=== PATIENT | male | born 1970 | race Caucasian/White ===

== ENCOUNTER 2016-10-11 20:55 | Observation (INO) | payer OTHER ==
[~2016-10-11 20:55] MED LIST: LISINOPRIL10 M1 PO; METOPROLOL SUCC25 M1 PO; MOTRIN IB200 M1 PO; ZITHROMAX250 M1 PO
[2016-10-11] MEDS ORDERED: VIBRAMYCIN100 M1 PO (21:40)
[2016-10-11] MEDS ORDERED: MUCINEX DM ER1 EAC1 PO (21:40)
[2016-10-11 22:15] LABS: BASO % 0.4 % (0-2); EOS % 1.4 % (0-7); EOSINOPHIL ABSOLUTE COUNT 0.1 tho/cmm (0.0-0.7); HCT-HEMATOCRIT 41.7 % (36.0-53.5); HGB-HEMOGLOBIN 13.8 gm/dl (13.5-17.0); IMMATURE GRANULOCYTES ABSOLUTE 0.02 tho/cmm (0-0.03); IMMATURE GRANULOCYTES PERCENT 0.2 % (0-0.3); LYMPH % 18.7 % (20-45); LYMPH ABSOLUTE COUNT 1.9 tho/cmm (0.8-4.5); MCH (MEAN CORPUSCULAR HGB) 27.1 pg (28.0-32.0); MCHC MEAN CORPUSCULAR HGB CONC 33.1 % (32.0-36.0); MCV (MEAN CELL VOLUME) 81.9 fl (82.0-96.0); MEAN PLATELET VOLUME 10.3 cmc (9.4-12.4); MONO % 6.4 % (0-12); MONOCYTE ABSOLUTE COUNT 0.6 tho/cmm (0.0-1.2); NEUTROPHIL ABSOLUTE COUNT 7.2 tho/cmm (1.6-8.0); NEUTROPHIL-AUTOMATED 7.2 tho/cmm (1.6-8.0); NEUTROPHILS % 72.9 % (40-80); PLATELET COUNT 334 tho/cmm (150-450); RED BLOOD COUNT 5.09 mil/cmm (4.40-5.70); RED CELL DISTRIBUTION WIDTH 14.7 % (12.4-16.4); WHITE BLOOD COUNT 9.9 tho/cmm (4.0-10.0)
[2016-10-11 22:29] LABS: BLOOD UREA NITROGEN 22 mg/dl (6-24); CARBON DIOXIDE-VENOUS 28 mmol/L (22-32); CHLORIDE 104 mmol/l (96-110); CREATININE 0.91 mg/dl (0.60-1.30); GLUCOSE 86 mg/dL (70-110); SODIUM 140 mmol/L (135-145); eGFR VALUE FOR BLACK >90 mL/Min
[2016-10-11 22:33] LABS: ANION GAP 12 mmol/L (0-20)
[2016-10-11 22:35] LABS: POTASSIUM 3.9 mmol/L (3.7-5.1)
[2016-10-12 04:41] LABS: ANION GAP 10 mmol/L (0-20); BLOOD UREA NITROGEN 21 mg/dl (6-24); CALCIUM 9.1 mg/dl (8.5-10.5); CARBON DIOXIDE-VENOUS 30 mmol/L (22-32); CHLORIDE 103 mmol/l (96-110); CREATININE 1.09 mg/dl (0.60-1.30); GLUCOSE 93 mg/dL (70-110); POTASSIUM 3.4 mmol/L (3.7-5.1); SODIUM 140 mmol/L (135-145); eGFR VALUE FOR BLACK >90 mL/Min
[2016-10-13 05:13] LABS: ANION GAP 11 mmol/L (0-20); BLOOD UREA NITROGEN 21 mg/dl (6-24); CALCIUM 8.8 mg/dl (8.5-10.5); CARBON DIOXIDE-VENOUS 31 mmol/L (22-32); CHLORIDE 105 mmol/l (96-110); CREATININE 0.95 mg/dl (0.60-1.30); GLUCOSE 97 mg/dL (70-110); POTASSIUM 3.5 mmol/L (3.7-5.1); SODIUM 143 mmol/L (135-145); eGFR VALUE FOR BLACK >90 mL/Min
[2016-10-13] MEDS ORDERED: COREG6.25 M1 PO (13:56)
[2016-10-13] MEDS ORDERED: ZESTRIL20 M3 PO (13:56)
[2016-10-13] MEDS ORDERED: ASPIRIN81 M1 PO (13:57)
--- NOTE | 2016-10-13 19:12 | NUR ---
10/13/16 @ 1911 REVIEVED STUDENT NURSE (WENDY MARTINEZ) CHARTING AND AGREE WITH CHARTING. AAYUSH VILLEGAS RN
[2016-10-14 05:12] LABS: ANION GAP 10 mmol/L (0-20); BLOOD UREA NITROGEN 25 mg/dl (6-24); CALCIUM 8.9 mg/dl (8.5-10.5); CARBON DIOXIDE-VENOUS 31 mmol/L (22-32); CHLORIDE 104 mmol/l (96-110); CREATININE 0.98 mg/dl (0.60-1.30); GLUCOSE 97 mg/dL (70-110); POTASSIUM 3.6 mmol/L (3.7-5.1); SODIUM 141 mmol/L (135-145); eGFR VALUE FOR BLACK >90 mL/Min
[2016-10-14] MEDS ORDERED: POTASSIUM CHLO20 ME3 PO (10:27)
[2016-10-14] MEDS ORDERED: LASIX40 M1 PO (10:27)
== END 2016-10-14 13:10 ==
LOC: EDMED 20:55 → EMR2 10-12 02:14 → PCUB 10-12 03:22
PROVIDERS: Emergency Medicine; Internal Medicine Cardiovascular Disease; Internal Medicine Interventional Cardiology; Physician Assistant Medical; ADMIT Internal Medicine Interventional Cardiology
PROC: 4A023N7 Measurement of Cardiac Sampling and Pressure, Left Heart, Percutaneous Approach (ICD-10-PCS; principal; 2016-10-12)
DX: I16.0 Hypertensive urgency (principal); I42.9 Cardiomyopathy, unspecified; R06.02 Shortness of breath; I27.2 Other secondary pulmonary hypertension; R79.89 Other specified abnormal findings of blood chemistry; R60.0 Localized edema; F17.210 Nicotine dependence, cigarettes, uncomplicated
CPT/HCPCS: C1894; G0009; G0378; J0360; J1644; J1650; J1940; J2250; J3010; Q9967